=== PATIENT | male | born 1955 | race Caucasian/White ===

== ENCOUNTER → 2017-07-16 | Outpatient (REF) | payer OTHER ==
[2017-07-16 20:21] LABS: BASO % 0.5 % (0.0-1.0); EOS # 0.2 10^3/uL (0.0-0.50); EOS % 2.9 % (0.0-3.0); IMMATURE GRANULOCYTE % 0.2 % (0-0); LYMPH # 1.8 10^3/uL (1.5-4.5); LYMPH % 27.8 % (24.0-44.0); MEAN CORPUSCULAR HEMOGLOBIN 30.8 pg (27.0-33.0); MEAN CORPUSCULAR HGB CONC 33.3 g/dl (32.0-36.5); MEAN CORPUSCULAR VOLUME 92.6 fl (80.0-96.0); MONO # 0.5 10^3/uL (0.0-0.8); MONO % 8.1 % (0.0-5.0); NEUTROPHILS % 60.5 % (36.0-66.0); PLATELET COUNT, AUTOMATED 220 10^3/uL (150-450); RED CELL DISTRIBUTION WIDTH 13.2 % (11.5-14.5); WHITE BLOOD COUNT 6.6 10^3/uL (4.0-10.0)
[2017-07-16 20:32] LABS: ALBUMIN 3.7 GM/DL (3.2-5.2); ALBUMIN/GLOBULIN RATIO 1.12 (1.00-1.93); ALKALINE PHOSPHATASE 73 U/L (45-117); ALT/SGPT 25 U/L (12-78); ANION GAP 7 MEQ/L (8-16); AST/SGOT 17 U/L (15-37); BILIRUBIN,TOTAL 0.4 MG/DL (0.2-1.0); BLOOD UREA NITROGEN 6 MG/DL (7-18); CARBON DIOXIDE LEVEL 26 MEQ/L (21-32); CHLORIDE LEVEL 108 MEQ/L (98-107); CREATININE FOR GFR 1.02 MG/DL (0.70-1.30); GLOMERULAR FILTRATION RATE > 60.0 (>49); GLUCOSE, FASTING 127 MG/DL (80-110); MAGNESIUM LEVEL 1.9 MG/DL (1.8-2.4); POTASSIUM SERUM 4.2 MEQ/L (3.5-5.1); SODIUM LEVEL 141 MEQ/L (136-145)
[2017-07-16 20:46] LABS: ERYTHROCYTE SEDIMENTATION RATE 4 mm/hr (0-20)
[2017-07-16 20:52] LABS: FOLATE 5.1 NG/ML (>5.4); VITAMIN B12 LEVEL 291 PG/ML (247-911)
[2017-07-18 13:52] LABS: ALBUMIN 4.07 GM/DL (3.29-5.55); ALBUMIN % 58.2 % (55.8-66.1); GAMMA GLOBULIN % 17.3 % (11.1-18.8)
[2017-07-23 00:07] LABS: Lyme Disease IgG/IgM Antibodie <0.91 ISR (0.00-0.90); Lyme Disease IgM Ab Quantitati <0.80 index (0.00-0.79)
== END ==
LOC: M LABNEURO 14:25
PROVIDERS: ATTEND Psychiatry & Neurology Neurology
DX: R25.8 Other abnormal involuntary movements (principal)

== ENCOUNTER 2019-10-27 08:24 | Day surgery (SDC) | payer SELFPAY ==
[~2019-10-27] VITALS: Ht 177.8 cm; Wt 97.1 kg
[~2019-10-27 08:24] MED LIST: ALL10TAB29 PO; ASPI81TA85 PO; EYE VITAMIN PO; LR 1,000 ML IV ONE; MULTCAP PO; VITA500C24 PO; ZANT150T40 PO; ZOLP12.515 PO
[2019-10-27] MEDS ORDERED: propofoL 200 MG/20 ML VIAL As Ordered ONE (09:00)
[2019-10-27] MEDS ORDERED: LIDOCAINE 2% INJ 100 MG/5 ML SDV (FOR ANES.) As Ordered ONE (09:01)
[2019-10-27] MEDS ORDERED: ROCURONIUM BROMIDE 50 MG/5 ML VIAL As Ordered ONE (09:01)
[2019-10-27] MEDS ORDERED: MIDAZOLAM INJ 2 MG/2 ML VIAL (J2250) As Ordered ONE (09:08)
[2019-10-27] MEDS ORDERED: fentaNYL 100 MCG/2 ML INJECTION (J3010) As Ordered ONE (09:08)
[2019-10-27] MEDS ORDERED: dexameTHASONE 4 MG/ML 1ML VIAL (J1100) As Ordered ONE (09:10)
[2019-10-27] MEDS ORDERED: ONDANSETRON 4MG/2ML VIAL (J2405) As Ordered ONE (09:10)
[2019-10-27] MEDS ORDERED: CETACAINE SPRAY 5GM As Ordered ONE (09:42)
[2019-10-27] MEDS ORDERED: SUGAMMADEX SODIUM 500 MG/5 ML VIAL (BRIDION) As Ordered ONE (10:12)
[2019-10-27] MEDS ORDERED: LR 1,000 ML IV SCH (10:45)
[2019-10-27] MEDS ORDERED: oxyCODONE 5MG TAB PO PRN (10:45)
[2019-10-27] MEDS ORDERED: fentaNYL 100 MCG/2 ML INJECTION (J3010) IV PRN (10:45)
[2019-10-27] MEDS ORDERED: ONDANSETRON 4MG/2ML VIAL (J2405) IV PRN (10:45)
[2019-10-27 12:00] VITALS: BP 130/65
--- NOTE | 2019-10-28 17:01 | RO ---
DATE OF PROCEDURE: 10/27/2019 PREOPERATIVE DIAGNOSIS: Metastatic left neck cancer. POSTOPERATIVE DIAGNOSIS: Metastatic left neck cancer. OPERATIVE PROCEDURE: Direct laryngoscopy and biopsy. SURGEON: Al Fitch MD TRAIN BRAKER: ANESTHESIA: General. FINDINGS: There was hypertrophic tissue at the base of the tongue left side. Several biopsies were performed. DESCRIPTION OF PROCEDURE: Under general anesthesia with the patient intubated, the patient draped in the usual manner. The laryngoscope was inserted after I used a dental guard of Aquaplast. I examined the oropharynx, hypopharynx, larynx. The above findings were seen. Several biopsies were taken from the base of the tongue on that left side. The patient tolerated the procedure well, was extubated and transferred to the recovery room in excellent condition. Minimal bleeding.
== END 2019-10-27 12:07 | disposition home or self-care (01) ==
LOC: M SDC 08:24
PROVIDERS: ATTEND Otolaryngology
DX: C01 Malignant neoplasm of base of tongue (principal); K21.9 Gastro-esophageal reflux disease without esophagitis; Z79.82 Long term (current) use of aspirin; Z79.899 Other long term (current) drug therapy
CPT/HCPCS: 31535; 88305; J1100; J2250; J2405; J3010

== ENCOUNTER → 2019-11-16 | Outpatient (CLI) | payer OTHER ==
[~2019-11-16] MED LIST changes: +CLON1TAB8 PO; -LR 1,000 ML IV ONE; +MAGICMW SSP; +MELO15TA28 PO; +ONDA8TAB10 PO; +PROC10TA4 PO; +SUCR1SS PO; +TRAM50TA2 PO; +ZOLO50TA PO
--- NOTE | 2019-11-16 18:30 | REP ---
PET/CT: History: Metastatic squamous cell carcinoma. Carcinoma of the tongue base. Comparisons: Comparison outside CT study of the neck 10/01/2019 and sonography of the left neck October 13, 2019. TECHNIQUE: 60 minutes following the intravenous injection of a 9.07 mCi dose of F-18 FDG, three-dimensional PET scintigraphy is acquired from the skull base to the proximal thighs. Triplanar noncontrast CT scanning is acquired through the same anatomic range for attenuation correction, and image registration with scan parameters optimized to minimize radiation exposure to the patient. PET scintigraphy and CT datasets were fused and displayed on a workstation with multiplanar and projection display capability. PET/CT Findings: There is hypermetabolic uptake in the area of soft tissue irregularity and nodularity seen in the base of the tongue. Maximum standard uptake value here is 13.23. There is hypermetabolic uptake in the known enlarged left cervical lymph node. Maximum standard uptake value here is 7.47. No other cervical adenopathy or cervical hypermetabolic uptake is seen. No abnormal hypermetabolic uptake is seen in the chest. No abnormal hypermetabolic uptake is seen in the abdomen or pelvis. Impression: Abnormal hypermetabolic uptake is seen in the tongue base and in the known enlarged left cervical lymph node. No other abnormal hypermetabolic uptake is seen. Electronically Signed by Ruiz Villa MD 11/16/2019 08:02 P
== END ==
LOC: M PLARAD 11:15
PROVIDERS: ATTEND Specialist
DX: C01 Malignant neoplasm of base of tongue (principal)
CPT/HCPCS: 78815; A9552

== ENCOUNTER → 2019-11-18 | Outpatient (CLI) | payer OTHER ==
[~2019-11-18] MED LIST changes: -CLON1TAB8 PO; +ISOVUE-370 76% 100ML VIAL (Q9967) As Ordered ONE; -MAGICMW SSP; -ONDA8TAB10 PO; -PROC10TA4 PO; -SUCR1SS PO; -TRAM50TA2 PO; -ZOLO50TA PO
--- NOTE | 2019-11-18 14:41 | REP ---
Clinical: Head and neck cancer. Technique: Axial contrast enhanced images from the thoracic inlet to the upper abdomen coronal and sagittal re-formations using 100 ml Isovue 370 intravenous contrast material. Comparison: None. Findings: The bilateral lung gutierrez are well-aerated, relatively symmetric and clear. Minimal chronic scarring suggested at the lingula and left base. No consolidation, significant nodule or mass lesion appreciated. No pleural effusion. No pneumothorax. Tracheobronchial tree is patent. No axillary, hilar, or mediastinal adenopathy is appreciated. Thoracic aorta, pulmonary vasculature and heart/pericardium are relatively normal. Limited evaluation of the upper abdomen demonstrates a few small cystic changes to the liver measuring up to 1.8 cm in the left lobe. Musculoskeletal structures demonstrate age-related changes without focal abnormality. Impression: 1. No acute mediastinal or pleuroparenchymal process. 2. No evidence for metastatic disease. 3. Few small benign hepatic cysts measuring up to 1.8 cm. Electronically Signed by Jared Rebolledo MD 11/18/2019 02:33 P
--- NOTE | 2019-11-18 15:00 | REPVR ---
PROCEDURE INFORMATION: Exam: CT Neck With Contrast Exam date and time: 11/18/2019 1:45 PM Age: 64 years old Clinical indication: Condition or disease; Cancer; Other: Head and neck CA; Additional info: Staging for head and neck CA TECHNIQUE: Imaging protocol: Computed tomography images of the neck with intravenous contrast. Radiation optimization: All CT scans at this facility use at least one of these dose optimization techniques: automated exposure control; mA and/or kV adjustment per patient size (includes targeted exams where dose is matched to clinical indication); or iterative reconstruction. Contrast material: ISOVUE 370; Contrast volume: 100 ml; Contrast route: IV; COMPARISON: CT ST NECK W/ CONTRAST - OUTSIDE PRIOR 10/01/2019 2:19 PM FINDINGS: Orbits: Orbits are unremarkable. Sinuses: Paranasal sinuses are clear with the exception of mild mucosal disease posteriorly in the floor of the right maxillary antrum. Nasopharynx: Unremarkable. Oropharynx: The lesion of the tongue base measures 3.1 cm in width by 1.3 cm AP by approximately 3.5 cm cranial caudal. The degree of enhancement has decreased in comparison the prior study which may be associated with timing of the x-ray contrast bolus or due to treatment. Hypopharynx: Unremarkable Larynx: Unremarkable. Normal epiglottis. Retropharyngeal space: Unremarkable. Submandibular/Parotid glands: Normal. Glands are normal in size. Thyroid: Normal. No enlarged or calcified nodules. Lymph nodes: The left cervical chain lymph node measures 2.9 cm AP x 2.2 cm in width by 3.6 cm craniocaudal. There is an additional abnormal lymph node along its superior posterior margin measuring 7.8 mm which is rounded in configuration and has enhancing margin. Series 201, image 32. It previously measured 5.6 mm. Trachea: Visualized trachea is unremarkable. Lungs: No lesions at the lung apices. Mastoid air cells: Middle ear cavities and mastoid air cells are clear. Bones/joints: Degeneration is again seen in the cervical spine. Soft tissues: Unremarkable. No significant soft tissue swelling. IMPRESSION: The squamous cell primary of the lingual tongue base has increased in size in comparison to the prior examination as has the presumed metastatic node in the left cervical chain. There is an additional adjacent probably infiltrated lymph node along superior margin of left cervical chain node. Electronically signed by: Anne-Marie Villela On 11/18/2019 14:59:49 PM
== END ==
LOC: M RAD 13:15
PROVIDERS: ATTEND Internal Medicine Hematology & Oncology
DX: C02.9 Malignant neoplasm of tongue, unspecified (principal)
CPT/HCPCS: 70491; 71260; Q9967

== ENCOUNTER → 2019-11-19 | Outpatient (CLI) | payer OTHER ==
[~2019-11-19] MED LIST changes: -ISOVUE-370 76% 100ML VIAL (Q9967) As Ordered ONE
--- NOTE | 2019-11-20 11:16 | CR ---
DATE OF CONSULTATION: 11/19/2019 DIAGNOSIS: Squamous cell carcinoma of the base of the tongue, T2N2M0. HISTORY OF PRESENT ILLNESS: Mr. Kumar is a 64-year-old nonsmoker, noticed the swelling in his left neck in mid-September. He did not have any associated symptoms. Denies sore throat, difficulty of swallowing. He has no ear symptoms associated with this. He underwent CT of the neck with contrast on 10/01/2019 which reported 1.8 x 2.6 x 3.2 cm lymph node deep to the sternocleidomastoid and posterior to the left jugular vein at this level highly suspicious metastatic disease, He had fine-needle aspiration (FNA) of the left neck node on 10/13/2019 and reported finding suspicious for malignancy. There is also thickening at the base of the tongue, greater on the left side, most likely representing a lingual tonsil primary lesion measuring about 3 x 1.2 x 3 cm. This suggests T2 lesion. The biopsy of the lingual tonsil was reported to be squamous cell carcinoma at least in situ. Clinical correlation was recommended. His past medical history is noncontributory. CURRENT MEDICATIONS: Are: - EyePromise - multivitamin - Zyrtec - Zantac 75 mg - Ambien 5 mg p.r.n. SURGICAL HISTORY: Includes tonsillectomy at 12 years of his age and appendectomy 23 years of his age. He has no known allergies. FAMILY HISTORY: Noncontributory. SOCIAL HISTORY: He is a nonsmoker all his life except for when he was 14 years of his age. He does not chew tobacco. He does not have any alcohol abuse. REVIEW OF SYSTEMS: General and constitutional: He denies any recent weight changes, fever, chills. HEENT: He denies any hearing problems or difficulty of swallowing. Respiratory/pulmonary: He denies wheezing, shortness of breath. Cardiovascular: Denies chest pain, palpitations, edema. Gastrointestinal: He denies nausea, vomiting, constipation, or diarrhea. Genitourinary: He denies urinary frequency, dysuria, hematuria, or incontinence. Musculoskeletal: Denies arthritis, bone pain. Neurological: No headache. Psychiatric/Emotional: Denies depression or anxiety. ECOG performance status: 0. PHYSICAL EXAMINATION: General examination revealed well developed/nourished male who does not appear to be in apparent distress. He is alert and oriented. HEENT: External auditory canal is normal. No inflammation or discharge. Oral examination: There is no mucositis. The mouth is moist. I was not able to feel the swelling in both tonsil areas. He has poor dentition, but he was seen by a dentist. Neck: There is swelling in the left neck measuring 3 x 3.5 cm, moderate in consistencies partially fixed. Cardiovascular: Regular rhythm and rate. Respiratory: Clear to auscultation. Abdomen: Is soft, nontender, nondistended without any palpable mass, organomegaly. Genitourinary: Was not performed. Skin: There are no skin lesions. Extremities: No edema, cyanosis. Neurological: Strength and sensation grossly intact. Psychiatric: Mood and affection appropriate. PATHOLOGICAL FINDINGS: Mentioned in history of present illness (HPI). RADIOLOGICAL FINDINGS: Mentioned in HPI. STAGING: T2N2M0. The patient had the recent PET CT and was reported to be negative. ASSESSMENT AND THE RECOMMENDATIONS: Mr. Kumar is a 64-year-old gentleman, noticed a swelling in left neck in September. He has no associated symptoms with the mass. Noticed a slight increase in size. The patient had a CT scan on 10/01/2019 which reported lymph node 1.8 x 2.6 x 3.3 cm in the deep to the sternocleidomastoid and posterior to the left jugular vein at C3 level highly suspicious for metastatic disease. There is also thickening at the base of the tongue, greater on the left side, most likely representing a lingual tonsil primary lesion measuring about 3 x 1.2 x 3 cm. FNA of the neck node was suspicious, and biopsy of the base of the tongue on 10/27/2019 showed squamous cell carcinoma at least in situ. The patient was accompanied by his . We reviewed (NCCN) guidelines and up to date. He did not have HPV test, based on guidelines and up to date, HPV is recommended especially for oropharyngeal cancer. HPV positive oropharyngeal cancer has better prognosis and in the staging was counted based on the different based on the HPV findings. Even though treatment may not differ but patient is anxious to know. If it is HPV positive, he will be stage II. I spoke to Dr. Shrestha. The patient is agreeable for rebiopsy. We also discussed and recommended simultaneous chemo RT. I have discussed the procedures and possible side effects associated with the radiation therapy. He already has seen the dentist, and the fluoride treatment was recommended and also include mucositis, skin reactions, general fatigue. I recommended dose of about the 0600-3181 cGy in 200 cGy daily fractions using IMRT. I have given them a chance to ask questions and concerns and they were answered to their satisfaction, MTDD
--- NOTE | 2019-11-22 15:15 | MEDONC ---
DATE OF SERVICE: 11/19/2019 REASON FOR FOLLOWUP: Base of tongue cancer. DIAGNOSIS AND TREATMENT HISTORY: Mid 09/2019 - felt left neck mass, saw PCP who ordered CT neck -- 10/01/2019 left thickening base of tongue representing lingual tonsil primary lesion measuring 3 cm x 1.2 cm x 3 cm, superficial to the left sternocleidomastoid at C3 18 x 26 x 32 NMLN suspicious for mets. - 10/14/2019 - FNA of mass per patient. Per pathology report FNA of the sternocleidomastoid muscle suspicious for metastatic squamous cell carcinoma. 10/27/2019 saw ENT, Dr. Fitch. Direct laryngoscopic evaluation - base of tongue biopsy - squamous cell carcinoma. (second opinion [facility] 11/11/2019-- carcinoma base of tongue biopsy, sternocleidomastoid mass FNA -- + metastatic squamous cell carcinoma). INTERVAL HISTORY: The patient returns in followup today, has a radiation oncology appointment today. Completed his updated staging workup. He continues to deny any pain in his neck. No pain or difficulty with swallowing. Previously reported a 30 to 35 pound weight loss over the past year through diet, cutting out sugar and soda. Denies any new complaints. He has a good appetite and sleep. No pain or bleeding at any site. Denies any other complaints. REVIEW OF SYSTEMS: CONSTITUTIONAL: No fevers, no chills, no night sweats, no fatigue, no malaise. CARDIOPULMONARY: No chest pain, no SOB, no palpitations, no dizziness. No cough. No hemoptysis. GASTROINTESTINAL: No pain, nausea, vomiting, constipation or diarrhea. No hematemesis, no melena or hematochezia. GENITOURINARY: No dysuria, no hematuria, incontinence, frequency, no urgency. MUSCULOSKELETAL: No bony, no muscle, no joint aches or pains. WEIGH AND CHARGE WORKER: No tingling, weakness, numbness. No headaches, dizziness, seizures, no speech, no visual disturbances. All other systems are negative unless otherwise specified in HPI. PAST MEDICAL/SURGICAL HISTORY: Tonsillectomy. Appendectomy. "Walking pneumonia". MEDICATIONS: Reviewed in EMR and reconciled. ALLERGIES: NKDA. VITAL SIGNS: Reviewed in EMR - stable. PHYSICAL EXAM: HEENT: Oral mucosa - pink and moist, no conjunctival pallor, sclera anicteric bilaterally. LYMPHATICS: Per prior exam. Left neck LAD overlying sternocleidomastoid muscle measuring 6 x 5 cm. Skin above WNL. No supraclavicular, axillary or inguinal LAD. LUNGS: Clear to auscultation bilaterally, resonant to percussion bilaterally. HEART: Regular rhythm, no murmurs, no S3, S4, no rubs. ABDOMEN: Soft, nontender, bowel sounds normoactive, no hepatosplenomegaly. EXTREMITIES: No edema bilaterally. Calves, nontender bilaterally. SKIN/NAILS: No nail changes. No petechiae/ecchymosis or other skin changes. MUSCULOSKELETAL: Spine nontender to palpation. INVESTIGATIONS: Reviewed in the EMR. ASSESSMENT/PLAN: 1. T1, N2, M0 squamous cell carcinoma of the base of tongue - per ENT evaluation. 11/16/2019 PET -- abnormal hypermetabolic lesion base of tongue. Known enlarged left cervical lymph node. No other hypermetabolic uptake. 11/18/2019 CT of the neck, lesion tongue base measures 3.1 cm x 1.3 cm x 3.5 cm, left cervical chain LN -- 2.9 cm x 2.2 cm x 3.6 cm with additional lymph node along the superior posterior margin measuring 7.8 mm. 11/18/2019 CT of the chest, no metastatic disease, two benign hepatic cysts measuring 1.8 cm. The patient is either a T2N2b if HPV negative or a T2N1 if positive. Per my previous discussion with Dr. Barry, HPV testing could not be performed in the sample and the FNA specimen was not adequate for HPV testing. I had attempted to contact Dr. Fitch since the patient's initial consultation but he is out of the office. We reattempted to reach him today, I am told that he will return on 11/22/2019. I think that it would be reasonable to rebiopsy the area for HPV testing. I explained to patient his staging workup demonstrates local regional disease. Since ENT has deemed him a nonsurgical candidate up front, discussed in detail risks, benefits and adverse effects in common management and side effects of cisplatin/concurrent chemoradiation. He has a radiation oncology consultation today. Discussed with him PET tube to prevent malnutrition/dehydration from expected radiation induced mucositis. Saw dentist, was given a clean bill of [employer], report requested. Refer to IR for Bobby-Cath placement. CBC and CMP from 11/09/2019 unremarkable -- we will update at start of chemoradiation. Discussed with Dr. Ayala -- CT sim to be planned for next week. Consider starting in 2 weeks, per Dr. Ayala. 2. Low normal B12 - 291 on 07/16/2017. Updated 11/09/2019 B12 -- 734 -- no deficiency. 3. Folate deficiency - 5.1 on 07/16/2017. Updated 11/09/2019 folate -- 20.9 -- no deficiency. FOLLOWUP: Coordinate with radiation oncology for state date of concurrent chemoradiation. All of the above was relayed to the patient who was given an opportunity to ask questions that were answered to satisfaction. The patient voiced an understanding and agreed to proceed. Thank you for asking us to see this patient in consultation. It is always a privilege and pleasure to participate in the care of your patients. Unreviewed DD: Irvin Shrestha MD 11/19/2019 08:53 P DT: lou 11/22/2019 02:00 P CC: Emir Sales Jr, MD Norman Weir, MD
== END ==
LOC: M ONCR 12:50
PROVIDERS: ATTEND Radiology Radiation Oncology
DX: C02.9 Malignant neoplasm of tongue, unspecified (principal)

== ENCOUNTER → 2019-11-25 | Outpatient (REF) | payer OTHER | LOC: M LAB REF 13:58 | PROVIDERS: ATTEND Otolaryngology | DX: C01 Malignant neoplasm of base of tongue (principal) ==

== ENCOUNTER → 2019-12-01 | Outpatient (CLI) | payer OTHER ==
[~2019-12-01] MED LIST changes: +GLUCAGON FOR INJ 1 MG VIAL (J1610) As Ordered ONE; +ISOVUE-300 61% 50ML VIAL (Q9967) As Ordered ONE; +LIDOCAINE 1% MDV 20ML VIAL As Ordered ONE; +LIDOCAINE 2% JELLY 30 ML As Ordered ONE; +MIDAZOLAM INJ 2 MG/2 ML VIAL (J2250) As Ordered ONE; +ceFAZolin 1GM INJ (J0690 PER 500MG) As Ordered ONE; +diphenhydrAMINE INJ 50MG/ML VIAL (J1200) As Ordered ONE; +fentaNYL 100 MCG/2 ML INJECTION (J3010) As Ordered ONE
--- NOTE | 2019-12-01 13:45 | IRHP ---
[facility] IR Pre-Procedure H & P General Date of Service: Dec 01, 2019 Procedure: Same Day Surgery Interval History and Physical I have seen the patient and reviewed last H & P performed within 30 days. There is no significant interval change. History of Present Illness Chief Complaint The patient is a 64-year-old male admitted with a reason for visit of Ca Base Of Tongue, Pre Radiation Treatment. PRE-PROCEDURE DIAGNOSIS: tongue ca HEART: normal rate. LUNGS: normal breathing at rest. ASA Classification ASA Classification: II-Mild systemic disease Mallampati Score: II NPO: Yes Problems with prior sedation: No Obstructive Sleep Apnea: No Plan moderate sedation Allergies Coded Allergies: No Known Allergies (Unverified , 10/26/19) Home Medications Scheduled Ascorbic Acid (Vitamin C), 500 MG PO DAILY, (Reported) Meloxicam (Meloxicam), 15 MG PO PRN, (Reported) Multivitamin (Multivitamins), 1 CAP PO DAILY, (Reported) [Eye Vitamin], 2 CAP PO DAILY, (Reported) Scheduled PRN Cetirizine HCl (Cetirizine HCl), 10 MG PO DAILYPRN PRN for ALLERGIES, (Reported) Zolpidem Tartrate (Zolpidem Tartrate ER), 12.5 MG PO QHSP PRN for SLEEP, (Reported) VS, I&O, 24H, Fishbone Vital Signs/I&O Vital Signs Date Time Temp Pulse Resp B/P (MAP) Pulse Ox O2 Delivery O2 Flow Rate FiO2 12/01/19 12:35 97.5 64 16 95 Room Air Laboratory Data 24H LABS Laboratory Tests 2 12/01/19 13:30: Lab Scanned Report LAB OTHER ELISHA GONSALVES MD Dec 01, 2019 13:45
--- NOTE | 2019-12-01 15:25 | POST-OPPD ---
Postoperative Procedure Note Date Of Procedure: Dec 01, 2019 Time Of Procedure: 15:23 PREOPERATIVE DIAGNOSIS: head and neck ca POSTOPERATIVE DIAGNOSIS: same FINDINGS: unremarkable stomach PROCEDURE: 18 F G tube placed. use after 24 hours. SURGEON: karyn ANESTHESIA: mod sed ESTIMATED BLOOD LOSS: < 5 ml COMPLICATIONS: none POSTOPERATIVE CONDITION: stable ELISHA GONSALVES MD Dec 01, 2019 15:25
[2019-12-01 17:00] VITALS: BP 138/80
--- NOTE | 2019-12-02 14:57 | REP ---
IR gastrostomy catheter placement with fluoroscopy guidance. IR moderate sedation. Clinical information: Head and neck cancer. Planned chemo radiation. Physician: Dr. Diaz. Procedure: The patient and patient's healthcare proxy were advised of the benefits, risks and alternatives of the procedure and informed consent was obtained. The time-out was performed with verification of the patient's name, MRN, site of procedure and type of procedure to be performed. The patient was positioned in the supine position on the angiographic table. The site was prepped and draped in the usual sterile fashion. A 5-Danish Kumpe catheter in conjunction with a Glidewire was inserted through the nostril under fluoroscopy guidance, down the esophagus into the stomach. The wire was removed. The catheter was taped to the nose. Moderate sedation was performed by the physician including the presence of an independent trained observer who assisted in monitoring the patient's level of consciousness and physiologic status. Following the administration of Versed and Fentanyl, the physician spent 60 minutes of continuous face to face time with the patient. A filling machine tender radiograph reveals kumpe catheter tip in the expected location of the stomach. 1 mg of glucagon was administered intravenously. The stomach was insufflated and distended with air through the nasogastric tube. The soft tissues overlying the anticipated puncture site were anesthetized with lidocaine. A gastropexy needle was advanced into the stomach and positioning was confirmed with contrast injection. The gastropexy suture was deployed and secured in the usual fashion. A total of three gastropexy sutures were deployed under fluoroscopy guidance. An 18 gauge needle was advanced into the body of the stomach under fluoroscopy guidance. Contrast was injected through the needle documenting intragastric position. An Amplatz wire was advanced into the stomach. After serial dilation under fluoroscopy guidance, a 20-Danish peel-away sheath was advanced over the wire into the stomach under fluoroscopy guidance. An 18-Danish AnnemarieWild Pockets gastrostomy catheter was then advanced through the peel-away sheath under fluoroscopy guidance. Contrast was injected through the gastrostomy catheter confirming position within the stomach. The balloon was insufflated and retracted to the anterior stomach wall. The catheter bumper was positioned to sandwich the anterior abdominal wall. The catheter was placed gravity drainage. The nasogastric catheter was removed. The patient tolerated the procedure well and was returned to PRU in stable condition. EBL: Less than 5 ml. Complications: None. Impression: 1. Successful percutaneous placement of 18-Danish gastrostomy catheter. Catheter to remain to gravity drainage for 24 hours. 2. Catheter may be used 24 hours past placement. The gastropexy sutures will dissolve within 6 weeks and the buttons will fall-off. 3. Patient to follow up in IR clinic in 2 weeks. Thank you this referral. Cc Dr. Irvin Shrestha Electronically Signed by Raisa Diaz MD 12/02/2019 02:56 P
== END ==
LOC: M IRPRO 12:22
PROVIDERS: ATTEND Radiology Diagnostic Radiology
DX: C01 Malignant neoplasm of base of tongue (principal)
CPT/HCPCS: 43246; 99152; 99153; C1729; C1769; C1887; C1894; J0690; J1200; J1610; J2250; J3010; Q9967

== ENCOUNTER → 2019-12-02 | Outpatient (CLI) | payer OTHER ==
[~2019-12-02] MED LIST changes: -GLUCAGON FOR INJ 1 MG VIAL (J1610) As Ordered ONE; -ISOVUE-300 61% 50ML VIAL (Q9967) As Ordered ONE; -LIDOCAINE 2% JELLY 30 ML As Ordered ONE
--- NOTE | 2019-12-02 14:31 | POST-OPPD ---
Postoperative Procedure Note Date Of Procedure: Dec 02, 2019 Time Of Procedure: 14:30 PREOPERATIVE DIAGNOSIS: Head and neck ca POSTOPERATIVE DIAGNOSIS: same FINDINGS: patent right IJ PROCEDURE: right side port placed. ready to use SURGEON: karyn ANESTHESIA: mod sed ESTIMATED BLOOD LOSS: < 5 ml COMPLICATIONS: none POSTOPERATIVE CONDITION: stable ELISHA GONSALVES MD Dec 02, 2019 14:31
--- NOTE | 2019-12-02 14:49 | REP ---
IR Ultrasound and fluoroscopy-guided port placement. IR Ultrasound of the neck. IR Moderate sedation. Clinical information: Head and neck cancer. Physician: Dr. Diaz. Procedure: The patient was advised of the benefits, risks, and alternatives of the procedure and informed consent was obtained. A time-out was performed with verification of the patient's name, MRN, site of procedure and type of procedure to be performed. The patient was positioned in the supine position on the angiographic table. The site was prepped and draped in the usual sterile fashion. Moderate sedation was performed by the physician including the presence of an independent trained observer who assisted and monitored the patient's level of consciousness and physiologic status. Following the administration of fentanyl and Versed , the physician spent 45 minutes of continuous face to face time with the patient. Ultrasound of the neck reveals a patent and compressible right internal jugular vein. A cup setter lockstitch radiograph reveals no gross abnormality. The neck and anterior chest wall were anesthetized with lidocaine. The right internal jugular vein was accessed using a microintroducer needle under ultrasound guidance, via a lateral approach. An 018 wire was advanced into the superior vena cava, the needle was removed and a microsheath was placed. An Amplatz wire was then passed into the inferior vena cava. An incision at the internal jugular vein access site and anterior chest wall were made using a scalpel. An incision was made at the anterior chest wall. A small pocket was created using a combination of blunt and sharp dissection. A tunneling device was then used to pass the catheter from the pocket to the neck puncture site. An 8-Kinyarwanda Angio Beezag Smart power port was then positioned in the pocket. The catheter was then measured and cut. The introducer sheath was exchanged for a peel-away sheath. The catheter was passed through the peel-away sheath into the internal jugular vein and the peel-away sheath was removed. The port tip was positioned at the cavoatrial junction. The port was then accessed with a Beckett needle. The port flushes and aspirates well. The puncture site in the neck was closed. The chest wall incision was then closed with 2-0 Vicryl and 4-0 Monocryl. Glue and Steri-Strips were applied. A sterile dressing was then applied. The patient tolerated the procedure well and was returned to the PRU in stable condition. Estimated blood loss: <5 ml. Complications: None. Conclusion: 1. Successful placement of an 8-Kinyarwanda Angio dynamics Smart power port via the right internal jugular vein. The port is ready for immediate use. 2. Patient to follow up in IR clinic in 2 weeks. Thank you for this referral. Electronically Signed by Raisa Diaz MD 12/02/2019 02:48 P
[2019-12-02 16:30] VITALS: BP 141/81
== END ==
LOC: M IRPRO 11:51
PROVIDERS: ATTEND Radiology Diagnostic Radiology
DX: C01 Malignant neoplasm of base of tongue (principal)
CPT/HCPCS: 36561; 99152; 99153; C1769; C1788; C1894; J0690; J1200; J1642; J1644; J2250; J3010

== ENCOUNTER 2019-12-03 13:41 | Outpatient (RCR) | payer OTHER ==
[~2019-12-03 13:41] MED LIST changes: -LIDOCAINE 1% MDV 20ML VIAL As Ordered ONE; -MIDAZOLAM INJ 2 MG/2 ML VIAL (J2250) As Ordered ONE; -ceFAZolin 1GM INJ (J0690 PER 500MG) As Ordered ONE; -diphenhydrAMINE INJ 50MG/ML VIAL (J1200) As Ordered ONE; -fentaNYL 100 MCG/2 ML INJECTION (J3010) As Ordered ONE
--- NOTE | 2019-12-06 08:44 | RADONC ---
RADIATION ONCOLOGY SIMULATION NOTE DATE: 12/03/2019 CHART NUMBER: SIMULATION NOTE: Mr. Kumar was taken to the CT scan for CT simulation of his head and neck field. CT was accomplished without difficulty or discomfort. Radiation treatment planning is underway and radiation treatments will begin subsequently. An immobilization device including a mass was created. It was created without difficulty or discomfort. It will be used throughout the course of treatment. I was physically present throughout the course of CT simulation.
== END 2019-12-04 ==
LOC: M ONCR 13:41
PROVIDERS: ATTEND Radiology Radiation Oncology
DX: C10.9 Malignant neoplasm of oropharynx, unspecified (principal)

== ENCOUNTER 2019-12-15 10:49 | Outpatient (CLI) | payer OTHER ==
[~2019-12-15] VITALS: Ht 182.9 cm; Wt 100.9 kg
[~2019-12-15 10:49] MED LIST changes: +ONDA8TAB10 PO; +PROC10TA4 PO
[2019-12-15 11:05] VITALS: BP 129/62
[2019-12-15] MEDS: NS 1,000 ML IV SCH ×2 (11:18→13:05)
[2019-12-15] MEDS ORDERED: SODIUM CHLORIDE 0.9% INJ 10 ML SYR IV ONE (13:00)
[2019-12-15 13:45] VITALS: BP 132/63
== END 2019-12-15 13:45 | disposition home or self-care (01) ==
LOC: M INFU 10:49
PROVIDERS: ATTEND Internal Medicine Hematology & Oncology
DX: C01 Malignant neoplasm of base of tongue (principal)
CPT/HCPCS: 96360; 96361; J1642

== ENCOUNTER 2019-12-17 10:25 | Outpatient (CLI) | payer OTHER ==
[~2019-12-17] VITALS: Ht 177.8 cm; Wt 97.7 kg
[~2019-12-17 10:25] MED LIST changes: +SODIUM CHLORIDE 0.9% INJ 10 ML SYR IV SCH
[2019-12-17 10:30] VITALS: BP 136/76
[2019-12-17] MEDS ORDERED: NS 1,500 ML IV ONE (10:45)
[2019-12-17 12:15] VITALS: BP 120/69
== END 2019-12-17 13:30 | disposition home or self-care (01) ==
LOC: M INFU 10:25
PROVIDERS: ATTEND Internal Medicine Hematology & Oncology
DX: C01 Malignant neoplasm of base of tongue (principal)
CPT/HCPCS: 96360; 96361; J1642

== ENCOUNTER 2019-12-27 14:26 | Outpatient (CLI) | payer OTHER ==
[~2019-12-27] VITALS: Ht 179.1 cm; Wt 101.0 kg
[~2019-12-27 14:26] MED LIST changes: +CLON1TAB8 PO; +MAGICMW SSP; -SODIUM CHLORIDE 0.9% INJ 10 ML SYR IV SCH; +SUCR1SS PO
[2019-12-27 14:30] VITALS: BP 134/74
[2019-12-27] MEDS ORDERED: SODIUM CHLORIDE 0.9% INJ 10 ML SYR IV ONE (15:00)
[2019-12-27] MEDS ORDERED: NS 1,500 ML IV SCH (15:00)
[2019-12-27 17:06] VITALS: BP 116/69
== END 2019-12-27 17:07 | disposition home or self-care (01) ==
LOC: M INFU 14:26
PROVIDERS: ATTEND Internal Medicine Hematology & Oncology
DX: C01 Malignant neoplasm of base of tongue (principal)
CPT/HCPCS: 96360; 96361; J1642

== ENCOUNTER 2019-12-29 10:52 | Outpatient (CLI) | payer OTHER ==
[~2019-12-29] VITALS: Ht 170.2 cm; Wt 92.7 kg
[2019-12-29 10:55] VITALS: BP 130/68
[2019-12-29] MEDS ORDERED: NS 1,000 ML IV ONE ×2 (11:00→11:30)
[2019-12-29] MEDS ORDERED: NS 500 ML IV ONE (13:00)
[2019-12-29] MEDS ORDERED: SODIUM CHLORIDE 0.9% INJ 10 ML SYR IV PRN (13:15)
[2019-12-29 13:52] VITALS: BP 129/97
[2019-12-30] MEDS ORDERED: SODIUM CHLORIDE 0.9% INJ 10 ML SYR IV SCH (09:00)
== END 2019-12-29 13:55 | disposition home or self-care (01) ==
LOC: M INFU 10:52
PROVIDERS: ATTEND Internal Medicine Hematology & Oncology
DX: C01 Malignant neoplasm of base of tongue (principal)
CPT/HCPCS: 96360; 96361; J1642

== ENCOUNTER 2019-12-31 11:21 | Outpatient (CLI) | payer OTHER ==
[~2019-12-31] VITALS: Ht 180.3 cm; Wt 92.3 kg
[~2019-12-31 11:21] MED LIST changes: +SODIUM CHLORIDE 0.9% INJ 10 ML SYR IV SCH
[2019-12-31] MEDS ORDERED: NS 500 ML IV SCH (11:30)
[2019-12-31] MEDS: NS 1,000 ML IV SCH ×2 (11:34→12:43)
[2019-12-31 11:35] VITALS: BP 134/81
[2019-12-31 13:27] VITALS: BP 127/73
[2020-01-03] MEDS ORDERED: TRAM50TA2 PO (09:44)
[2020-01-03] MEDS ORDERED: ZOLO50TA PO (09:44)
== END 2019-12-31 13:30 | disposition home or self-care (01) ==
LOC: M INFU 11:21
PROVIDERS: ATTEND Internal Medicine Hematology & Oncology
DX: C01 Malignant neoplasm of base of tongue (principal)
CPT/HCPCS: 96360; 96361; J1642

== ENCOUNTER → 2020-01-04 | Outpatient (RCR) | payer OTHER ==
--- NOTE | 2019-12-15 07:28 | RADONC ---
RADIATION ONCOLOGY PROGRESS NOTE: DATE: 12/13/2019 CHART NUMBER: [id number] Mr. Kumar was taken to the linear accelerator today and underwent his first fraction of radiation to his base of tongue. Radiation was tolerated without difficulty. REVIEW OF SYSTEMS: The patient's review of systems is noncontributory. He denies nausea, vomiting, fevers, chills, night sweats, diplopia, headaches, anxiety or depression, anorexia, weight loss, visual disturbances, chest pain, urinary or bowel difficulties, bone pain, or neurological problems. PHYSICAL EXAMINATION: Clearly the patient's skin shows no evidence of radiation change present. He tolerated his first fraction without difficulty. Radiation will continue as scheduled.
--- NOTE | 2019-12-21 11:13 | RADONC ---
RADIATION ONCOLOGY PROGRESS NOTE DATE: 12/20/2019 CHART #: [id number] Mr. 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 He is also receiving concomitant cisplatin based chemotherapy. Thus far, he denies any significant nausea, vomiting, coughing, sputum production or hemoptysis. He also denies significant alteration of taste or significant further dryness of his mouth. His energy level was diminished after his first dose of chemotherapy, but he is recovering nicely from the side effects of both radiotherapy and chemotherapy combined. He denies any odynophagia. EXAMINATION FINDINGS: The skin within the volume looks normal without erythema and certainly no focal desquamation. He continues to have a swelling in the left neck previously described as a 3 x 3.5 cm mass. This finding is still noticeable with perhaps some shrinkage. There is no additional lymphadenopathy appreciated. Mucous membranes are without evidence of erythema and certainly no focal desquamation thus far. Lungs are clear. IMPRESSION: The patient has been tolerating his radiotherapy very well. PLAN: Treatments to continue.
--- NOTE | 2019-12-27 14:49 | RADONC ---
RADIATION ONCOLOGY PROGRESS NOTE DATE OF SERVICE: 12/27/2019 CHART NUMBER: [id number] Mr. Kumar is presently a dose of 2200 cGy to his base of tongue and reports that he continues to be able to eat soft foods and is using Boost. He did start his triple mix today in light of a sore throat. The patient's review of systems is positive for sore throat and difficulty swallowing but is otherwise noncontributory. Denies nausea, vomiting, fevers, chills, night sweats, diplopia, headaches, anxiety or depression, anorexia, weight loss, visual disturbances, chest pain, urinary or bowel difficulties, bone pain, or neurological problems. PHYSICAL EXAMINATION The patient's physical examination was deferred at this point secondary to COVID-19 precautions. Mr. Kumar is tolerating treatments quite well and radiation will continue as scheduled.
--- NOTE | 2020-01-03 16:10 | RADONC ---
RADIATION ONCOLOGY PROGRESS NOTE DATE: 01/03/2020 CHART NUMBER: [id number] PROGRESS NOTE: Mr. Kumar is thus far at a dose of 3000 cGy to his base of tongue and is tolerating treatments quite well at this point with no unanticipated difficulties related to his radiation therapy. He does have a sore throat but he is still swallowing. He is also using his feeding tube. REVIEW OF SYSTEMS: Again, the patient's review of systems is positive for difficulty swallowing but is otherwise noncontributory. The patient's review of systems is noncontributory. Denies nausea, vomiting, fevers, chills, night sweats, diplopia, headaches, anxiety or depression, anorexia, weight loss, visual disturbances, chest pain, urinary or bowel difficulties, bone pain, or neurological problems. PHYSICAL EXAMINATION: Physical examination was deferred at this point secondary to COVID-19. ASSESSMENT: Mr. Kumar is tolerating treatments quite well and radiation will continue as scheduled.
[~2020-01-04] MED LIST changes: -SODIUM CHLORIDE 0.9% INJ 10 ML SYR IV SCH; +TRAM50TA2 PO; +ZOLO50TA PO
== END ==
LOC: M ONCR 12-06 13:12
PROVIDERS: ATTEND Radiology Radiation Oncology
DX: C10.9 Malignant neoplasm of oropharynx, unspecified (principal)

== ENCOUNTER → 2020-01-06 | Outpatient (REF) | payer OTHER ==
[2020-01-06 18:33] LABS: PREALBUMIN 31.5 MG/DL (20.0-40.0)
[2020-01-06 18:36] LABS: HEMOGLOBIN A1c 5.7 %
[2020-01-06 18:38] LABS: FOLATE 23.6 NG/ML (>5.4)
== END ==
LOC: M SHH 16:37
PROVIDERS: ATTEND Registered Nurse
DX: C01 Malignant neoplasm of base of tongue (principal)

== ENCOUNTER 2020-01-31 09:18 | Outpatient (RCR) | payer OTHER ==
--- NOTE | 2020-01-11 08:22 | RADONC ---
RADIATION ONCOLOGY PROGRESS NOTE DATE: 01/10/2020 CHART NUMBER: [id number] PROGRESS NOTE: Mr. Kumar is presently at a dose of 4000 cGy to his base of tongue and is tolerating his treatments fairly well. He does have some hoarseness and a sore throat with some nausea. He did have chemo last Friday. He has been using his PEG tube. His weight today is down however 11 pounds, although the patient reports that he is using eight cans of Ensure a day and getting plenty of fluids. I have instructed him to increase his fluid intake and we will continue to monitor him. The remainder of his physical exam remained unchanged. Once again, as noted above, we will continue to follow him. I explained him that he appears to be getting dehydrated and since he does have a PEG tube there is no need to give him IV fluids at this point, but it is comparative that he increase his fluid intake. We have stressed that.
--- NOTE | 2020-01-17 14:05 | RADONC ---
RADIATION ONCOLOGY PROGRESS NOTE DATE: 01/17/2020 CHART NUMBER: #[id number] PROGRESS NOTE: Mr. Kumar is presently at a dose of 5000 cGy to his head and neck and is tolerating treatments quite well at this point with no significant difficulties related to his radiation therapy. He is having some difficulty swallowing and tenderness, but otherwise is doing quite well. REVIEW OF SYSTEMS: The patient's review of systems is positive for sore throat but basically is otherwise noncontributory. Denies nausea, vomiting, fevers, chills, night sweats, diplopia, headaches, anxiety or depression, anorexia, weight loss, visual disturbances, chest pain, urinary or bowel difficulties, bone pain, or neurological problems. PHYSICAL EXAMINATION: The patient's physical exam was deferred secondary to COVID-19. ASSESSMENT: Mr. Kumar is tolerating treatments quite well and radiation will continue as scheduled.
--- NOTE | 2020-01-22 13:53 | MEDONCTEEN ---
Date/Time of Encounter Date of Encounter: Jan 22, 2020 Time of Encounter: 13:30 Telephone Encounter Patient reports more throat pain Tramadol was working and was taking 2/day Cycle 3 ciisplatin Friday Using Peg tube Receiving IVF M,W,F Six doses XRT left IMP Worsening cancer related pain ICD 10 G89.3 due to XRT treatment effect Plan Increase tramadol to 100mg QID PRN has 26 pills left Primary MD filled Rx Patient will call later tonight or tomorrow to advise on pain control Primary MD can refill Rx MALIK YO MD Jan 22, 2020 13:52
--- NOTE | 2020-01-24 14:14 | RADONC ---
RADIATION ONCOLOGY PROGRESS NOTE DATE OF SERVICE: 01/24/2020 CHART NUMBER: [id number]. PROGRESS NOTE: Mr. Kumar is presently at a dose of 6000 cGy to his base of tongue and is complaining of significant pain. He reports that he has been given tramadol by his primary care physician, and he actually called the medical oncologist, Dr. Adames, on Friday saying his pain was excruciating. Dr. Adames simply told him to double his tramadol. REVIEW OF SYSTEMS: The patient's review of systems is positive for pain with swallowing but is otherwise noncontributory. He denies nausea, vomiting, fevers, chills, night sweats, diplopia, headaches, anxiety or depression, anorexia, weight loss, visual disturbances, chest pain, urinary or bowel difficulties, bone pain, or neurological problems. PHYSICAL EXAMINATION: Physical examination was deferred as per COVID-19 precautions. ASSESSMENT: The patient only has five fractions of radiation to go to his base of tongue. I have checked with the Internet System for Tracking Over-Prescribing (I-STOP) system; and, indeed, he has no narcotic pain medications prescribed on the system. In light of this, I have sent in a prescription for Percocet which he can crush up and use through his feeding tube. In the meantime, radiation will continue as scheduled, and he will be followed closely.
[~2020-01-31 09:18] MED LIST changes: +LORA2CON5 PO; +ONDA8TAB8 PO; +PERC10TA26 PO; +PROC10TA4 PEG
--- NOTE | 2020-02-01 09:07 | RADONC ---
RADIATION ONCOLOGY TREATMENT SUMMARY: DATE: 01/31/2020 CHART NUMBER: [id number] DIAGNOSIS: Base of tongue cancer. STAGE: IV A, T2pN2a M0 p16 negative. ECOG PERFORMANCE STATUS: 1 Mr. Kumar is a very pleasant 64-year-old white male with the diagnosis of a stage IV A, T2 N2a M0, p16 negative, squamous cell carcinoma of the base of tongue who presented to us for consideration of definitive external beam radiation therapy with IMRT/IGRT. We treated the patient to his base of tongue for a total dose of 7000 cGy delivered in 35 fractions of 200 cGy each over 48 elapsed days from 12/13/2019 through 01/31/2020. The patient's base of tongue was treated on a linear accelerator utilizing a 6MV photon beam via IMRT /IGRT. We treated the patient's noninvolved lymph nodes to a dose of 5000 cGy delivered in 25 fractions of 200 cGy each over 35 elapsed days in 12/13/2019 through 01/17/2020. The patient's uninvolved lymph nodes was also treated on a linear accelerator utilizing A6 MV photon beam via IMRT/IGRT. Mr. Kumar tolerated his treatments with some discomfort. He was treated with miracle mouth wash as well as pain medications. He received systemic therapy throughout the course of treatment as well. I have scheduled the patient to see me again in routine followup in 1 month and he will continue his close management and followup with his medical oncologist as well. cc: MD Emir Rojas Jr, MD Norman Weir, MD
== END 2020-02-03 ==
LOC: M ONCR 09:18
PROVIDERS: ATTEND Radiology Radiation Oncology
DX: C10.9 Malignant neoplasm of oropharynx, unspecified (principal)

== ENCOUNTER → 2020-02-22 | Outpatient (REF) | payer OTHER ==
[~2020-02-22] MED LIST changes: +ATIV2TAB PO; +FLUC100T PO; +LORA1TAB4 PO
[2020-02-22 17:20] LABS: ATYPICAL LYMPH 5 % (0-5); EOSINOPHILS 5 % (0-3); LYMPHOCYTES 14 % (16-44); METAMYELOCYTES 2 % (0-0); MONOCYTES 23 % (0-5); NEUTROPHILS 50 % (28-66); PLATELET ESTIMATE NORMAL (NORMAL)
[2020-02-22 17:21] LABS: ANISOCYTOSIS 2+; HYPOCHROMASIA 1+; TEAR DROP CELLS 1+
== END ==
LOC: M LAB REF 16:08
PROVIDERS: ATTEND Internal Medicine
DX: D72.9 Disorder of white blood cells, unspecified (principal)

== ENCOUNTER → 2020-03-01 | Outpatient (CLI) | payer OTHER | LOC: M ONCR 13:08 | PROVIDERS: ATTEND Radiology Radiation Oncology | DX: C10.9 Malignant neoplasm of oropharynx, unspecified (principal) ==

== ENCOUNTER → 2020-03-15 | Outpatient (CLI) | payer OTHER ==
[~2020-03-15] MED LIST changes: +LIDOCAINE 1% MDV 20ML VIAL As Ordered ONE; -ZOLP12.515 PO; +ZOLP12.518 PO
[2020-03-15 10:46] VITALS: BP 164/79
--- NOTE | 2020-03-15 21:45 | REP ---
ULTRASOUND-GUIDED RIGHT NECK MASS BIOPSY The procedure was performed under the direct supervision of Dr. Neumann. The patient has a history of hypermetabolic uptake in an enlarged left cervical lymph node seen on a previous PET scan dated 11/16/2019. The risks and benefits of the procedure were explained to the patient and informed consent was obtained. The left neck mass was localized using ultrasound guidance. The skin was prepped and draped in a sterile fashion. 1% lidocaine was used as a local anesthetic. Using ultrasound guidance a 17/18 gauge coaxial needle biopsy system was inserted and advanced into the mass. Five core biopsy samples were obtained and sent to lab. The patient tolerated the procedure well and there were no immediate complications. After the appropriate amount of monitored convalescence the patient was discharged from the department. Electronically Signed by SERVANDO Galo 03/15/2020 03:43 P Electronically Signed by Paolo Neumann MD 03/15/2020 09:36 P
== END ==
LOC: M IRPRO 10:05
PROVIDERS: ATTEND Internal Medicine Hematology & Oncology
DX: R59.0 Localized enlarged lymph nodes (principal); C10.9 Malignant neoplasm of oropharynx, unspecified; C01 Malignant neoplasm of base of tongue

== ENCOUNTER → 2020-03-20 | Outpatient (CLI) | payer OTHER ==
[~2020-03-20] MED LIST changes: -LIDOCAINE 1% MDV 20ML VIAL As Ordered ONE; +PROHANCE 279.3MG/ML 15ML VIAL As Ordered ONE
--- NOTE | 2020-03-20 15:12 | REPVR ---
PROCEDURE INFORMATION: Exam: MR Neck Without and With Contrast Exam date and time: 03/20/2020 12:28 PM Age: 64 years old Clinical indication: Condition or disease; Cancer; Patient HX: CA base of tongue, restaging; Additional info: Head/neck CA TECHNIQUE: Imaging protocol: MR images of the neck without and with intravenous contrast. Contrast material: PROHANCE; Contrast volume: 15 ml; Contrast route: IV; COMPARISON: 1. CT Neck with contrast 11/18/2019 1:47 PM 2. PT - PET/CT Skull/mid thigh 11/16/2019 1:03:[address] NECK W/ CONTRAST - OUTSIDE PRIOR 10/01/2019 2:19:17 PM FINDINGS: Nasopharynx: Unremarkable. Oropharynx: Prominence of the lingual tonsillar tissue is present, similar to the prior exam. Hypopharynx: Unremarkable. Larynx: Unremarkable. Submandibular/Parotid glands: Unremarkable. Retropharyngeal space: Unremarkable. Vasculature: Unremarkable. Lymph nodes: An enlarged heterogeneous enhancing left cervical chain lymph node is unchanged, measuring approximately 3.9 x 2.7 x 2.3 cm (previously 3.9 x 2.8 x 2.4 cm). No other pathologic lymphadenopathy is seen. Soft tissues: Unremarkable. Bones/joints: Unremarkable. IMPRESSION: 1. Stable prominence of the lingual tonsillar tissue. Malignancy in this area is not excluded. Clinical correlation is recommended. 2. Stable pathologically enlarged left cervical lymph node Electronically signed by: Dhruv Wesley On 03/20/2020 15:12:13 PM
== END ==
LOC: M RAD 12:23
PROVIDERS: ATTEND Internal Medicine Hematology & Oncology
DX: C01 Malignant neoplasm of base of tongue (principal); R59.0 Localized enlarged lymph nodes
CPT/HCPCS: 70543; A9576

== ENCOUNTER → 2020-03-22 | Outpatient (CLI) | payer OTHER ==
[~2020-03-22] MED LIST changes: -ALL10TAB29 PO; -ASPI81TA85 PO; +ASPI81TA86 PO; +CETI-24 PO; +ISOVUE-370 76% 100ML VIAL As Ordered ONE; -PROHANCE 279.3MG/ML 15ML VIAL As Ordered ONE; +TAGA200T3 PO
--- NOTE | 2020-03-22 14:17 | REP ---
Clinical: History of head and neck carcinoma. Technique: Axial contrast enhanced images from the thoracic inlet to the upper abdomen using 100 ml Isovue 370 intravenous contrast material with coronal and sagittal re-formations. Comparison: 11/18/2019. Findings: The bilateral lung gutierrez are well-aerated and essentially clear. No consolidation, significant nodule or mass lesion appreciated. No pleural effusion. No pneumothorax. Tracheobronchial tree is patent. No axillary, hilar, or mediastinal adenopathy. Mediastinum demonstrates normal thoracic aorta, pulmonary vasculature and heart/pericardium. No pericardial effusion. Hmhfse-L-Wxai identified with tip in the SVC/right atrium. Surrounding musculoskeletal structures are intact without acute osseous abnormality. Limited upper abdomen demonstrates normal bilateral adrenal glands. Percutaneous gastrostomy tube identified in satisfactory position. Stable hepatic cyst. Impression: 1. No acute mediastinal or pleuroparenchymal process. Specifically, no evidence for metastatic disease. Electronically Signed by Jared Rebolledo MD 03/22/2020 02:08 P
--- NOTE | 2020-03-22 16:25 | REP ---
CT SOFT TISSUE NECK: 03/22/2020 INDICATION: Dysphagia. Head and neck carcinoma. COMPARISON: None. TECHNIQUE: Axial CT images of the neck soft tissues were obtained following IV iodinated contrast administration with coronal sagittal reconstructions provided. FINDINGS: There is a 2.6 cm heterogeneously enhancing mass within the left parotid gland. There is soft tissue fullness of the left tongue base as well without focal pathologic enhancement. The airway is patent. No concerning fluid collections are present. The visualized lungs are clear. Minimal atherosclerotic disease of the carotid bulbs is present without significant stenosis. IMPRESSION: Heterogeneously dense/enhancing mass of left parotid gland concerning for pathologic lymph node likely representing squamous cell carcinoma. Prominent soft tissue of the left tongue base as well. Direct infection correlation is recommended and tissue sampling of the parotid region. Electronically Signed by Lucho Calderón DO 03/24/2020 08:40 A
== END ==
LOC: M RAD 13:21
PROVIDERS: ATTEND Internal Medicine Hematology & Oncology
DX: C02.9 Malignant neoplasm of tongue, unspecified (principal)

== ENCOUNTER → 2020-04-03 | Outpatient (CLI) | payer OTHER ==
[~2020-04-03] MED LIST changes: +ALL10TAB29 PO; +ASPI81TA85 PO; -ASPI81TA86 PO; -CETI-24 PO; -ISOVUE-370 76% 100ML VIAL As Ordered ONE; -TAGA200T3 PO
== END ==
LOC: M LABSMTC 09:47
PROVIDERS: ATTEND Internal Medicine Hematology & Oncology
DX: Z03.818 Encounter for observation for suspected exposure to other biological agents ruled out (principal); Z11.59 Encounter for screening for other viral diseases

== ENCOUNTER → 2020-06-27 | Outpatient (POV) | payer OTHER ==
[~2020-06-27] MED LIST changes: -ALL10TAB29 PO; -ASPI81TA85 PO; +ASPI81TA86 PO; +CETI-24 PO
--- NOTE | 2020-06-28 13:35 | IRPN ---
[facility] IR Progress Note IR Progress Note DATE: Jun 27, 2020 Patient agreed to this telephone follow-up. Duration of call 5 minutes. FOLLOW-UP: Patient with head and neck cancer, underwent last chemotherapy session in January this year and last radiation session in January. Patient states he is eating and drinking without any issues. He would like his port and PEG removed. These were both placed by myself in November of this year. IMPRESSION: Patient with head and neck cancer, completed chemotherapy and radiation therapy per patient in January this year. He is on observation only and has no further therapy planned. Patient requests his port and feeding be removed. We will schedule the patient for both to be removed. Thank you for this referral Cc Dr. Francisco Cc Dr. Sales CCMedical Oncologist Christopher Gutierres MD fax [phone] [place] [address] Surgical Oncologist: Dr. Jared Price MD, FACS [phone] [facility] [address] [place] [address] Allergies Coded Allergies: No Known Allergies (Unverified , 10/26/19) ELISHA GONSALVES MD Jun 28, 2020 13:35
== END ==
LOC: M TMIRPOV 10:17
PROVIDERS: ATTEND Radiology Diagnostic Radiology
DX: Z45.2 Encounter for adjustment and management of vascular access device (principal); C76.0 Malignant neoplasm of head, face and neck; Z43.1 Encounter for attention to gastrostomy; Z92.21 Personal history of antineoplastic chemotherapy; Z92.3 Personal history of irradiation

== ENCOUNTER → 2020-06-28 | Outpatient (CLI) | payer OTHER ==
--- NOTE | 2020-08-03 13:55 | RADONC ---
RADIATION ONCOLOGY FOLLOW-UP NOTE DATE: 06/28/2020 Chart #[id number] DIAGNOSIS: 1. Base of tongue cancer. Stage ARMANDO, T2, N2a, M0, p-16 negative. ECOG performance status 0. FOLLOW-UP NOTE: Mr. Kumar is a very pleasant 64-year-old white male with a diagnosis of a Stage ARMANDO, T2, N2a, M0 p-16 negative squamous cell carcinoma of the base of the tongue who is presenting to us today for routine follow-up visit five months post completion of external beam radiation therapy. The patient presents today reporting that he is doing quite well and has no complaints related to his radiation therapy. He reports that he is eating without difficulty and has no discomfort. He still has his feeding tube and that is being scheduled to take out. The patient reports that he has had a lymph node taken out his neck and pathology did reveal some residual malignancy. He is scheduled for a PET scan in July and may be undergoing a further neck dissection. He is also under the care of Medical Oncology and his Medical Oncology is both in [place] and here. REVIEW OF SYSTEMS: The patients review of systems is noncontributory. He denies nausea, vomiting, fevers, chills, night sweats, diplopia, headaches, anxiety or depression, anorexia, weight loss, visual disturbances or chest pain, urinary or bowel difficulties, bone pain or neurological problems. PHYSICAL EXAMINATION: GENERAL: The patient is a well-developed, well-nourished white male in no acute distress. HEENT: Normocephalic, atraumatic. Extraocular movements are intact. There is no palpable preauricular, cervical, supraclavicular or infraclavicular lymphadenopathy present. Oral cavity examination reveals no evidence of nodularity, ulceration or disease. LUNGS: Clear to auscultation and percussion. HEART: Regular rate and rhythm. ABDOMEN: Benign with no hepatosplenomegaly, masses or tenderness. He still has a feeding tube in place. ASSESSMENT: Patient is clinically doing well at this time. He is continuing his close follow-up with multiple physicians and is therefore being discharged from our follow-up at this center except on a p.r.n. basis. [facility] SERVICES[facility]
== END ==
LOC: M ONCR 13:56
PROVIDERS: ATTEND Radiology Radiation Oncology
DX: C10.9 Malignant neoplasm of oropharynx, unspecified (principal)

== ENCOUNTER → 2020-07-03 | Outpatient (REF) | payer OTHER | LOC: M LAB REF 12:26 | PROVIDERS: ATTEND Internal Medicine | DX: R68.82 Decreased libido (principal) ==

== ENCOUNTER → 2020-07-06 | Outpatient (CLI) | payer OTHER ==
[~2020-07-06] MED LIST changes: +ISOVUE-300 61% 50ML VIAL As Ordered ONE; +LIDOCAINE 1% MDV 20ML VIAL As Ordered ONE; +MIDAZOLAM INJ 2MG/2ML VIAL (J2250 PER 1MG) As Ordered ONE; +ceFAZolin 1GM VIAL (J0690 PER 500MG) As Ordered ONE; +diphenhydrAMINE 50MG/ML VIAL (J1200) As Ordered ONE; +fentaNYL 100 MCG/2 ML INJECTION (J3010) As Ordered ONE
--- NOTE | 2020-07-06 10:17 | POST-OPPD ---
Postoperative Procedure Note Date Of Procedure: Jul 06, 2020 Time Of Procedure: 10:16 Port Removal / Explant Clinical Information:Head and neck cancer. Treatment complete. Patient would like PEG tube and port removed. Physician: Dr. Diaz Procedure: The patient was advised of the benefits, risks, and alternatives of the procedure and informed consent was obtained. A time out was performed with verification of the patient's name, MRN, site of procedure, and type of procedure to be performed. The patient was positioned in the supine position on the angiographic table. The site was prepped and draped in the usual sterile fashion. Moderate sedation was performed by the physician including the presence of an independent trained observer who assisted in monitoring the patient's level of consciousness and physiological status. Following the administration of fentanyl and Versed the physician spent 30 minutes of continuous eist-ez-tnre t jade with the patient. A clinical care coordinator radiograph reveals a right sided port. The soft tissues overlying the port were anesthetized with lidocaine. An incision was made over the port using a 15 blade scalpel in the location of the prior incision. The catheter was then freed with blunt dissection and extracted. Pressure was applied to obtain hemostasis. The port was then freed with blunt dissection and subsequently removed. There were no signs of infection. After hemostasis was achieved, the incision was closed with interrupted deep 3-0 Vicryl sutures and subcuticular Monocryl suture followed by glue and steri-strips. The site was covered with a sterile dressing. The patient tolerated the procedure well and was returned to the PRU in stable condition. EBL:Less than 5 mL Complications:None. Conclusions: 1. Successful explant of a right-sided port. 2. No signs of infection. 3. The balloon on the percutaneous gastrostomy catheter was deflated and the gastrostomy catheter was removed in its entirety. A sterile dressing was applied to the site. Thank you for this referral ELISHA DIAZ MD Jul 06, 2020 10:17
[2020-07-06 11:45] VITALS: BP 109/65
== END ==
LOC: M IRPRO 08:37
PROVIDERS: ATTEND Radiology Diagnostic Radiology
DX: Z45.2 Encounter for adjustment and management of vascular access device (principal); C76.0 Malignant neoplasm of head, face and neck
CPT/HCPCS: 36590; 99152; 99153; J0690; J1200; J2250; J3010; Q9967

== ENCOUNTER → 2020-09-05 | Outpatient (CLI) | payer OTHER ==
[~2020-09-05] MED LIST changes: -ISOVUE-300 61% 50ML VIAL As Ordered ONE; -LIDOCAINE 1% MDV 20ML VIAL As Ordered ONE; -MIDAZOLAM INJ 2MG/2ML VIAL (J2250 PER 1MG) As Ordered ONE; -ceFAZolin 1GM VIAL (J0690 PER 500MG) As Ordered ONE; -diphenhydrAMINE 50MG/ML VIAL (J1200) As Ordered ONE; -fentaNYL 100 MCG/2 ML INJECTION (J3010) As Ordered ONE
--- NOTE | 2020-09-05 19:46 | REP ---
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 COMPARISON: Comparison PET-CT study November 16, 2019.. Comparison CT study March 22, 2020. TECHNIQUE: Sixty-nine minutes following the intravenous injection of a 7.55 mCi dose of F-18 FDG, three-dimensional PET scintigraphy is acquired from the skull base to the proximal thighs. Triplanar noncontrast CT scanning is acquired through the same anatomic range for attenuation correction, and image registration with scan parameters optimized to minimize radiation exposure to the patient. PET scintigraphy and CT datasets were fused and displayed on a workstation with multiplanar and projection display capability. FINDINGS: There is no abnormal hypermetabolic uptake in the head and neck soft tissues. The previously noted left cervical lymph node is no longer apparent. The previously noted uptake in the tongue and tongue base is not seen today. No new abnormal head and neck uptake is seen. There is no abnormal hypermetabolic focus in the lungs. No abnormal hypermetabolic uptake is seen in the hilar or mediastinal structures. No evidence of adenopathy. In the abdomen and pelvis, there is normal a patent, splenic, gastrointestinal, genitourinary FDG accumulation. No abnormal abdominal or pelvic hypermetabolic uptake is seen. IMPRESSION: Previously noted head and neck hypermetabolic foci are no longer seen. Negative PET scintigraphy. <Electronically signed by Andrez Villa > 09/05/201941
== END ==
LOC: M PLARAD 10:32
PROVIDERS: ATTEND Internal Medicine Hematology & Oncology
DX: C01 Malignant neoplasm of base of tongue (principal)
CPT/HCPCS: 78815; A9552

== ENCOUNTER → 2020-11-14 | Outpatient (CLI) | payer OTHER ==
[~2020-11-14] MED LIST changes: +TAGA200T3 PO
--- NOTE | 2020-11-15 04:13 | REP ---
INDICATION: SHOULDER PAIN COMPARISON: None. TECHNIQUE: Internal rotation, external rotation, and Y view. FINDINGS: No acute fracture or dislocation. The acromioclavicular and glenohumeral joints are intact. No significant periarticular calcifications or degenerative changes are appreciated. Sub acromial space is normal. Surrounding soft tissues are unremarkable. IMPRESSION: Normal age-appropriate right shoulder radiographs. <Electronically signed by Jared Rebolledo > 11/15/20 [id number]
== END ==
LOC: M SOG 10:58
PROVIDERS: ATTEND Orthopaedic Surgery Sports Medicine
DX: M75.41 Impingement syndrome of right shoulder (principal); M75.42 Impingement syndrome of left shoulder

== ENCOUNTER → 2022-10-21 | Outpatient (CLI) | payer MEDICARE, OTHER ==
[~2022-10-21] MED LIST changes: +CETI5TAB5 PO; -FLUC100T PO; +FLUC100T3 PO; +ONDA-84 PO; -ONDA8TAB10 PO; -PROC10TA4 PEG; -PROC10TA4 PO; +PROC10TA5 PEG; +PROC10TA5 PO
== END ==
LOC: M LABSMTC 09:24
PROVIDERS: ATTEND Internal Medicine Gastroenterology
DX: Z01.812 Encounter for preprocedural laboratory examination (principal); Z11.52 Encounter for screening for COVID-19

== ENCOUNTER 2022-10-23 12:35 | Day surgery (SDC) | payer MEDICARE, OTHER ==
[~2022-10-23] VITALS: Ht 177.8 cm; Wt 84.8 kg
[~2022-10-23 12:35] MED LIST changes: +NS 1,000 ML IV ONE
[2022-10-23] MEDS ORDERED: LIDOCAINE 2% 100MG/5ML SDV (FOR ANES.) As Ordered ONE (13:36)
[2022-10-23] MEDS ORDERED: propofoL 200 MG/20 ML VIAL As Ordered ONE (13:36)
[2022-10-23 14:10] VITALS: BP 106/69
== END 2022-10-23 14:18 | disposition home or self-care (01) ==
LOC: M OPP 12:35
PROVIDERS: ATTEND Internal Medicine Gastroenterology
DX: K22.89 Other specified disease of esophagus (principal); K31.A0 Gastric intestinal metaplasia, unspecified; K44.9 Diaphragmatic hernia without obstruction or gangrene; Z79.1 Long term (current) use of non-steroidal anti-inflammatories (NSAID); Z79.899 Other long term (current) drug therapy; G47.33 Obstructive sleep apnea (adult) (pediatric); Z85.21 Personal history of malignant neoplasm of larynx; Z92.3 Personal history of irradiation; Z92.21 Personal history of antineoplastic chemotherapy

== ENCOUNTER → 2023-12-10 | Outpatient (REF) | payer OTHER ==
[~2023-12-10] MED LIST changes: +LORA1TAB23 PO; -LORA1TAB4 PO; -NS 1,000 ML IV ONE
== END ==
LOC: M LAB REF 16:05
PROVIDERS: ATTEND Physician Assistant
DX: B34.9 Viral infection, unspecified (principal)

== ENCOUNTER → 2023-12-29 | Outpatient (REF) | payer OTHER | LOC: M LAB REF 16:29 | PROVIDERS: ATTEND Internal Medicine | DX: R63.4 Abnormal weight loss (principal); R53.83 Other fatigue ==

== ENCOUNTER → 2024-02-12 | Outpatient (CLI) | payer MEDICARE ==
[~2024-02-12] MED LIST changes: -ZOLP12.518 PO; +ZOLP12.535 PO
[2024-02-12 16:07] LABS: BASO % 0.5 % (0.0-1.0); EOS # 0.2 10^3/uL (0.0-0.5); EOS % 3.2 % (0.0-3.0); HEMATOCRIT 41.6 % (42.0-52.0); HEMOGLOBIN 13.7 g/dl (13.5-17.5); LYMPH % 17.6 % (24.0-44.0); MEAN CORPUSCULAR HEMOGLOBIN 30.4 pg (27.0-33.0); MEAN CORPUSCULAR HGB CONC 32.9 g/dl (32.0-36.5); MEAN CORPUSCULAR VOLUME 92.4 fl (80.0-96.0); MONO # 0.7 10^3/uL (0.0-0.8); MONO % 12.1 % (2.0-8.0); NEUTROPHILS # 3.7 10^3/uL (1.5-8.5); NEUTROPHILS % 66.4 % (36.0-66.0); PLATELET COUNT, AUTOMATED 180 10^3/uL (150-450); WHITE BLOOD COUNT 5.6 10^3/uL (4.0-10.0)
[2024-02-12 16:16] LABS: ERYTHROCYTE SEDIMENTATION RATE 18 mm/hr (0-20)
[2024-02-18 20:07] LABS: CRYPTOCOCCUS ANTIBODY SERUM Negative (Neg:<1:2)
== END ==
LOC: M PLALAB 12:29
PROVIDERS: ATTEND Internal Medicine Infectious Disease
DX: R91.8 Other nonspecific abnormal finding of lung field (principal)

== ENCOUNTER → 2024-03-04 | Outpatient (CLI) | payer MEDICARE | LOC: M RAD 14:09 | PROVIDERS: ATTEND Internal Medicine Critical Care Medicine | DX: J18.9 Pneumonia, unspecified organism (principal); R91.8 Other nonspecific abnormal finding of lung field ==

== ENCOUNTER → 2024-08-18 | Outpatient (CLI) | payer MEDICARE ==
[~2024-08-18] MED LIST changes: +ONDA-284 PO; -ONDA8TAB8 PO
== END ==
LOC: M RAD 09:58
PROVIDERS: ATTEND Internal Medicine Critical Care Medicine
DX: R91.8 Other nonspecific abnormal finding of lung field (principal); I25.10 Atherosclerotic heart disease of native coronary artery without angina pectoris

== ENCOUNTER 2024-09-22 09:35 | Day surgery (SDC) | payer MEDICARE ==
[~2024-09-22] VITALS: Ht 177.8 cm; Wt 75.7 kg
[~2024-09-22 09:35] MED LIST changes: +BACL10TA2 PO; +LEXA1TAB PO; +OMEP40CA5 PO; +ZOLP10TA2 PO
[2024-09-22] MEDS ORDERED: NS (Normal Saline) 0.9% 1,000 ML IV SCH ×2 (09:50→12:25)
[2024-09-22] MEDS: LIDOCAINE PRES-FREE 2% 10ML AMP INH ONE (11:25)
[2024-09-22] MEDS: ALBUTEROL SULFATE 2.5MG/0.5ML INH NEB SOLN INH ONE (11:25)
[2024-09-22] MEDS ORDERED: fentaNYL 100 MCG/2 ML INJECTION As Ordered ONE (12:08)
[2024-09-22] MEDS ORDERED: LIDOCAINE 2% 100MG/5ML SDV (FOR ANES.) As Ordered ONE (12:08)
[2024-09-22] MEDS ORDERED: MIDAZOLAM INJ 2MG/2ML VIAL As Ordered ONE (12:08)
[2024-09-22] MEDS ORDERED: SUGAMMADEX SODIUM 500 MG/5 ML VIAL (BRIDION) As Ordered ONE (12:08)
[2024-09-22] MEDS ORDERED: ROCURONIUM BROMIDE 50MG/5ML VIAL As Ordered ONE (12:08)
[2024-09-22] MEDS ORDERED: ONDANSETRON 4MG 2ML VIAL As Ordered ONE (12:08)
[2024-09-22] MEDS ORDERED: propofoL 200 MG/20 ML VIAL As Ordered ONE (12:08)
[2024-09-22] MEDS ORDERED: GLYCOPYRROLATE INJ 0.2 MG/ML 2 ML VIAL As Ordered ONE (12:08)
[2024-09-22] MEDS: CETACAINE SPRAY 5GM As Ordered ONE (12:15)
[2024-09-22] MEDS ORDERED: PHENYLephrine 500MCG 5ML (100MCG/ML) SYRINGE As Ordered ONE (12:16)
[2024-09-22] MEDS ORDERED: oxyCODONE 5MG TAB PO PRN (12:25)
[2024-09-22] MEDS ORDERED: ONDANSETRON 4MG 2ML VIAL IV PRN (12:25)
[2024-09-22] MEDS ORDERED: HYDROMORPHONE HCL 0.5 MG/ 0.5 ML SYRINGE IV PRN (12:25)
[2024-09-22] MEDS ORDERED: fentaNYL 100 MCG/2 ML INJECTION IV PRN (12:25)
[2024-09-22 14:00] VITALS: BP 109/63; TEMP 96.7; O2SAT 94
== END 2024-09-22 14:15 | disposition home or self-care (01) ==
LOC: M SDC 09:35
PROVIDERS: ATTEND Internal Medicine Critical Care Medicine
DX: J98.11 Atelectasis (principal); J42 Unspecified chronic bronchitis; R91.8 Other nonspecific abnormal finding of lung field; Z85.810 Personal history of malignant neoplasm of tongue; Z92.21 Personal history of antineoplastic chemotherapy; Z92.3 Personal history of irradiation; Z79.899 Other long term (current) drug therapy; K21.9 Gastro-esophageal reflux disease without esophagitis; Z90.49 Acquired absence of other specified parts of digestive tract; Z87.19 Personal history of other diseases of the digestive system
CPT/HCPCS: 31624; 31628; 71045; 76000; 87070; 87102; 87116; 87205; 87206; 88108; 88305; 88313; J1100; J1596; J2250; J2371; J2405; J3010

== ENCOUNTER → 2024-10-14 | Outpatient (CLI) | payer MEDICARE ==
[~2024-10-14] MED LIST changes: +BARIUM SULFATE 700 MG TABLET (E-Z-DISK) As Ordered ONE; +E-Z-PAQUE 96% w/w SUSP 176GM BTL As Ordered ONE; +VARIBAR NECTAR 40% w/v 240ML SUSP BTL As Ordered ONE; +VARIBAR PUDDING 40% w/v 230ML TUBE As Ordered ONE
== END ==
LOC: M RAD 11:00
PROVIDERS: ATTEND Internal Medicine Critical Care Medicine
DX: R91.8 Other nonspecific abnormal finding of lung field (principal)

== ENCOUNTER → 2024-11-29 | Outpatient (CLI) | payer MEDICARE ==
[~2024-11-29] MED LIST changes: -BARIUM SULFATE 700 MG TABLET (E-Z-DISK) As Ordered ONE; -E-Z-PAQUE 96% w/w SUSP 176GM BTL As Ordered ONE; -VARIBAR NECTAR 40% w/v 240ML SUSP BTL As Ordered ONE; -VARIBAR PUDDING 40% w/v 230ML TUBE As Ordered ONE
[2024-11-29 11:27] LABS: BASO % 0.4 % (0.0-1.0); EOS # 0.6 10^3/uL (0.0-0.5); EOS % 8.7 % (0.0-3.0); HEMATOCRIT 42.2 % (42.0-52.0); HEMOGLOBIN 13.7 g/dl (13.5-17.5); LYMPH # 1.5 10^3/uL (1.5-5.0); LYMPH % 21.6 % (24.0-44.0); MEAN CORPUSCULAR HEMOGLOBIN 29.6 pg (27.0-33.0); MEAN CORPUSCULAR HGB CONC 32.5 g/dl (32.0-36.5); MEAN CORPUSCULAR VOLUME 91.1 fl (80.0-96.0); MONO # 0.8 10^3/uL (0.0-0.8); MONO % 12.2 % (2.0-8.0); NEUTROPHILS # 3.9 10^3/uL (1.5-8.5); PLATELET COUNT, AUTOMATED 167 10^3/uL (150-450); RED BLOOD COUNT 4.63 10^6/uL (4.30-6.10); WHITE BLOOD COUNT 6.9 10^3/uL (4.0-10.0)
[2024-11-29 11:37] LABS: ERYTHROCYTE SEDIMENTATION RATE 11 mm/hr (0-20)
[2024-11-29 12:03] LABS: ALBUMIN 3.6 G/DL (3.2-5.2); ALKALINE PHOSPHATASE 65 U/L (40-129); ALT/SGPT 12 U/L (7.0-40); AST/SGOT 14 U/L (<34); BILIRUBIN,TOTAL 0.6 MG/DL (0.3-1.2); BLOOD UREA NITROGEN 26 MG/DL (9-23); C REACTIVE PROTEIN QUANTITATIV < 0.50 MG/DL (<1.0); CALCIUM LEVEL 9.3 MG/DL (8.3-10.6); CARBON DIOXIDE LEVEL 30 MMOL/L (20-31); CHLORIDE LEVEL 106 MMOL/L (98-107); CREATININE FOR GFR 0.92 MG/DL (0.70-1.30); GLOMERULAR FILTRATION RATE > 60.0 (>49); GLUCOSE, FASTING 90 MG/DL (74-106); POTASSIUM SERUM 4.2 MMOL/L (3.5-5.1); SODIUM LEVEL 144 MMOL/L (136-145)
[2024-11-29 12:46] LABS: IMMUNOGLOBULIN G 1414 MG/DL (650-1600); IMMUNOGLOBULIN M 89.7 MG/DL (50-300)
[2024-11-29 12:49] LABS: IMMUNOGLOBULIN E 24.4 IU/ML (0-378)
== END ==
LOC: M PLALAB 08:58
PROVIDERS: ATTEND Internal Medicine Infectious Disease
DX: A31.0 Pulmonary mycobacterial infection (principal)

== ENCOUNTER → 2025-06-20 | Outpatient (CLI) | payer MEDICARE ==
[~2025-06-20] MED LIST changes: +AZIT500T5 PO; +ETHA1TAB2 PO; +RIFA1CAP9 PO; +ZOLP10TA11 PO; -ZOLP10TA2 PO
== END ==
LOC: M PLAIMG 12:45
PROVIDERS: ATTEND Internal Medicine Infectious Disease
DX: R91.8 Other nonspecific abnormal finding of lung field (principal)

== ENCOUNTER → 2025-07-15 | Outpatient (CLI) | payer MEDICARE | LOC: M SOG 07:17 | PROVIDERS: ATTEND Physician Assistant | DX: M19.041 Primary osteoarthritis, right hand (principal) ==